=== PATIENT | female | born 1955 | race Caucasian/White ===

== ENCOUNTER 2018-06-20 18:17 | Emergency (ER) | payer BC ==
[~2018-06-20] VITALS: Ht 160 cm; Wt 71.4 kg
[2018-06-20 18:32] VITALS: BP 155/90; PULSE 77; RESP 18; Ht 160 cm; Wt 71.4 kg
[2018-06-20] MEDS ORDERED: KETOROLAC 30 MG INJ IM STA (19:43)
[2018-06-20] MEDS ORDERED: HYDR-4011 PO (22:11)
--- NOTE | 2018-06-21 02:22 | ERD ---
ER Documentation Chief Complaint Chief Complaint bib 881, tripped and fell, forehead lac, rm knee /right shoulder pain, HPI 62-year-old female presents for foot laceration after falling today at [facility]. She states that she has a lot of nose pain, right shoulder pain, bilateral hand pain, bilateral knee pain. She has associated headache that is rated 8 out of 10. She is currently not taking any blood thinners. Denies loss of consciousn ess or vomiting after the accident. Denies chest pain or shortness of breath. She also denies abdominal pain. ROS All systems reviewed and are negative except as per history of present illness. Medications Home Meds Active Scripts Hydrocodone/Acetaminophen ([place] 5-325 Tablet) 1 Each Tablet, 1 TAB PO Q6H PRN for PAIN, #10 TAB Prov:OLLIE ROSARIO DO 06/20/18 Allergies Allergies: Coded Allergies: aspirin (Verified Allergy, Intermediate, GI irritation, 06/20/18) PMhx/Soc Medical and Surgical Hx: pt denies Surgical Hx Hx Miscellaneous Medical Probl: Yes (DM) Hx Alcohol Use: No Hx Substance Use: No Hx Tobacco Use: No Smoking Status: Never smoker Physical Exam Vitals Vital Signs Date Temp Pulse Resp B/P (MAP) Pulse Ox O2 O2 Flow FiO2 Time Delivery Rate 06/20/18 99.7 77 18 155/90 98 18:32 (111) Physical Exam Const: No acute distress Head: 3 cm laceration noted over the frontal head area, no active bleeding. Eyes: Normal Conjunctiva ENT: Normal External Ears, nasal bridge with some contusion noted, no septal hematoma noted, and Mouth examination normal Neck: Full range of motion however there is some pain with movement. No meningismus. Mild midline tenderness noted Resp: Clear to auscultation bilaterally Cardio: Regular rate and rhythm, no murmurs, bilateral radial and dorsalis pedis pulses Abd: Soft, non tender, non distended. Normal bowel sounds Skin: No petechiae or rashes Back: No midline or flank tenderness Ext: Right shoulder range of motion normal with only mild tenderness to palpation, bilateral hands and wrists with only mild tenderness to palpation, no swelling noted. Bilateral knees with mild tenderness to palpation without swelling or obvious deformities noted. Neur: Awake and alert, bilateral upper and lower extremity sensation intact Psych: Normal Mood and Affect Results 24 hrs Current Medications Medications Dose Sig/Cheri Start Time Status Last (Trade) Ordered Route PRN Stop Time Admin Dose Reason Admin Ketorolac 30 mg ONCE STAT 06/20/18 DC 06/20/18 Tromethamine IM 19:43 06/20/18 19:53 (Toradol) 19:45 Procedures/MDM Medical Decision Making: Differential diagnosis includes but not limited to intracranial hemorrhage, forehead laceration, concussion. Patient appeared in moderate distress on physical examination. She was however alert and oriented x3. Patient was given Toradol with some relief of symptoms. Given the severity of the patient's headache after head injury head CT was done. Head CT was unremarkable. CT cervical spine was also unremarkable CT facial bones showed bilateral nondisplaced nasal bone fractures, age indeterminate with moderate soft tissue swelling overlying the left nasal bridge/periorbital region. Patient also had a 2 cm laceration on her forehead. The wound was irrigated. Patient decided not to get the laceration repaired in the ER, she referred to follow-up with a personal ENT that she knows. A wet gauze was placed over the wound and patient advised to see the ENT as soon as possible. Patient also advised follow-up with ENT regarding the nasal bone fracture. No septal hematoma noted on physical examination. Patient was advised however that if a mass developed over her nostril and/or she has trouble breathing to go back to the ER immediately. Patient given prescription for [place] for pain., Patient advised to follow up with PCP in 1-2 days. Patient advised to return to ED for new or worsening symptoms. Patient stable on discharge from the ED. Disclaimer: Inadvertent spelling and grammatical errors are likely due to EHR/dictation software use and do not reflect on the overall quality of patient care. Also, please note that the electronic time recorded on this note does not necessarily reflect the actual time of the patient encounter. Departure Diagnosis: Primary Impression: Head injury Additional Impression: Laceration Condition: Fair Patient Instructions: HEAD INJURY, No Wake-Up (Adult), Laceration, All Referrals: COMMUNITY CLINICS YOU HAVE RECEIVED A MEDICAL SCREENING EXAM AND THE RESULTS INDICATE THAT YOU DO NOT HAVE A CONDITION THAT REQUIRES URGENT TREATMENT IN THE EMERGENCY DEPARTMENT. FURTHER EVALUATION AND TREATMENT OF YOUR CONDITION CAN WAIT UNTIL YOU ARE SEEN IN YOUR DOCTORS OFFICE WITHIN THE NEXT 1-2 DAYS. IT IS YOUR RESPONSIBILITY TO MAKE AN APPOINTMENT FOR FOLOW-UP CARE. IF YOU HAVE A PRIMARY DOCTOR --you should call your primary doctor and schedule an appointment IF YOU DO NOT HAVE A PRIMARY DOCTOR YOU CAN CALL OUR PHYSICIAN REFERRAL HOTLINE AT IF YOU CAN NOT AFFORD TO SEE A PHYSICIAN YOU CAN CHOSE FROM THE FOLLOWING [facility] [address] [facility] [address] [facility] [address] [facility] [address] [facility]. [facility] [address] [facility]. [facility]. [address] Additional Instructions: Call your primary care doctor TOMORROW for an appointment during the next 1-2 da ys.See the doctor sooner or return here if your condition worsens before your appointment time. OLLIE ROSARIO DO Jun 21, 2018 02:22
== END 2018-06-20 22:46 | disposition home or self-care (01) ==
LOC: FTE 18:17
DX: S01.81XA Laceration without foreign body of other part of head, initial encounter (principal); E11.9 Type 2 diabetes mellitus without complications; W01.0XXA Fall on same level from slipping, tripping and stumbling without subsequent striking against object, initial encounter; Y92.9 Unspecified place or not applicable
CPT/HCPCS: 70450; 70486; 72125; 96372; 99285; J1885